=== PATIENT | female | born 1960 | race Two or more races ===

== ENCOUNTER 2019-08-09 21:28 | Emergency (ER) | payer OTHER ==
[2019-08-09 21:41] VITALS: BMI 28.9
--- NOTE | 2019-08-09 21:44 | PDOC ---
Rapid Medical Evaluation Chief Complaint: Blood Pressure Problem Time Seen by Provider: 08/09/19 21:41 Medical Evaluation: Allergies Allergy/AdvReac Type Severity Reaction Status Date / Time No Known Allergies Allergy Verified 08/09/19 21:38 Vital Signs Temp Pulse Resp BP Pulse Ox 98.1 F 88 18 142/100 100 08/09/19 21:35 08/09/19 21:35 08/09/19 21:35 08/09/19 21:35 08/09/19 21:35 08/09/19 21:42 Pt c/o: pt states elevated bp x 3 weeks with mild pressure like headache intermittently, pt states went to pcp last week and was told to change diet ( low salt) and f/u in 2 weeks. pt states headaches continues and unrelieved with tylenol Pt on brief exam: 142/100, no pedal edema, lcta, karmen Pt ordered for: labd, urine, cxr, ekg Pt to proceed to the ED Discharge Disposition - Diagnosis Elevated blood pressure reading, Headache - Discharge Dispostion Disposition: HOME Condition at time of disposition: Improved Last Admission D/C Date: 10/18/14 - Referrals Referrals: Miguel Ángel Guzman [Primary Care Provider] - - Patient Instructions Printed Discharge Instructions: DI for High Blood Pressure Additional Instructions: Follow up with your primary care doctor within 3 days. Your care is not complete until you follow up. Return to the Emergency Department for increasing pain, chest pain, shortness of breath, vomiting, fever, blood in urine, severe abdominal or back pain, lightheadedness, passing out, weakness, numbness, tingling, or any other new, worsening or concerning symptoms. ---- GOOGLE TRANSLATION PROVIDED VIA GOOGLE TRANSLATION Maile un seguimiento con mejía mdico de atencin primaria dentro de los 3 boyd. Mejía atencin no estar completa hasta que realice el seguimiento. Regrese al departamento de emergencias para aumentar el dolor, dolor en el pecho , falta de aliento, vmitos, fiebre, jose c en la orina, dolor abdominal o de espalda intenso, mareos, desmayos, debilidad, entumecimiento, hormigueo o cualquier otro sntoma nuevo, que empeora o preocupa. . Print Language: BULGARIAN - Post Discharge Activity Work/School Note: Back to Work
[2019-08-09] MEDS ORDERED: SODIUM CHLORIDE 1,000 ML IV STA (22:11)
[2019-08-09] MEDS ORDERED: METOCLOPRAMIDE HCL INJECTION 10 MG/2 ML VIAL IVPUSH ONE (22:11)
[2019-08-09] MEDS ORDERED: ACETAMINOPHEN 1000 MG/100 ML VIAL (NON FORMULARY) IVPB ONE (22:11)
--- NOTE | 2019-08-09 22:18 | PDOC ---
Attending Attestation - Resident Resident Name: Nakia Crandall - ED Attending Attestation I have performed the following: I have examined & evaluated the patient, The case was reviewed & discussed with the resident, I agree w/resident's findings & plan - HPI HPI: 08/10/19 06:59 see resident hpi - Physicial Exam PE: 08/10/19 06:59 agree with resident exam - Medical Decision Making 08/10/19 07:06 59-year-old female with bandlike headache and history of lung cancer CT brain showed no significant abnormalities Patient resolved after IV fluids, Tylenol and Reglan Patient DC'd home
[2019-08-09 22:26] LABS: BASO % 1.1 % (0-2.0); HEMATOCRIT 41.8 % (32.4-45.2); HEMOGLOBIN 13.8 GM/dL (10.7-15.3); LYMPH % 38.7 % (8-40); MCH 29.6 pg (25.7-33.7); MCHC 33.1 g/dl (32.0-36.0); MEAN CELL VOLUME 89.4 fl (80-96); MEAN PLT VOLUME 8.5 fl (7.5-11.1); MONO % 9.7 % (3.8-10.2); NEUT % 48.5 % (42.8-82.8); PLATELET COUNT 275 K/MM3 (134-434); RBC 4.67 M/mm3 (3.60-5.2); RDW 13.8 % (11.6-15.6); WHITE BLOOD COUNT 6.2 K/mm3 (4.0-10.0)
--- NOTE | 2019-08-09 22:41 | PDOC ---
History of Present Illness - General Chief Complaint: Blood Pressure Problem Stated Complaint: sent by doctor Time Seen by Provider: 08/09/19 21:41 History Source: Patient, [employer] Brusher Used Exam Limitations: Language Barrier - History of Present Illness Initial Comments: Phone hub lead ([id number]) used. 59 year old female with PMH new-onset HTN, lung CA (diagnosed 2013, s/p chemo and radiation, in remission x5 years) presented to ED for intermittent headache x3 weeks, worsening today. Pt reported she was told by her PCP x3 weeks ago she has high blood pressure, was started on a low salt diet, but reported no improvement of symptoms. She reported her headache is located to her forehead, wraps around band like, intermittent, throbbing, aggravated by force/coughing/ staring at TV, alleviated by tylenol. She denied nausea, vomiting, weakness, numbness, tingling, facial drooping, speech changes, dizziness, fever, chest pain, shortness of breath. PCP: Megan PSH: denied Past social history: denied nicotine use (present or past). Past History - Past Medical History Allergies/Adverse Reactions: Allergies Allergy/AdvReac Type Severity Reaction Status Date / Time No Known Allergies Allergy Verified 08/09/19 21:38 Home Medications: Ambulatory Orders NK [No Known Home Medication] 10/14/14 Cancer: Yes (lung) COPD: No Hypercholesterolemia: Yes - Psycho Social/Smoking Cessation Hx Smoking History: Never smoked Have you smoked in the past 12 months: No Information on smoking cessation initiated: No Hx Alcohol Use: No Drug/Substance Use Hx: No Substance Use Type: None Hx Substance Use Treatment: No Review of Systems - Review of Systems Able to Perform ROS?: Yes Comments:: ROS General: denied fever, chills, generalized weakness. HEENT: denied sore throat, rhinorrhea, ear pain. Cardiovascular: denied chest pain, palpitations, syncope, diaphoresis. Respiratory: denied shortness of breath, cough, sputum production, hemoptysis. Gastrointestinal: denied abdominal pain, nausea, vomiting, diarrhea, constipation, blood in stool. Genitourinary: denied dysuria, increased urinary frequency, hematuria, urinary incontinence, flank pain. Back: denied back pain. Musculoskeletal: denied joint pain, muscle pain, joint swelling. Neurological: admitted to headache. denied dizziness, numbness, tingling, weakness. Integumentary: denied rash, laceration, abrasion. Hematologic/Lymphatic: denied bruising or bleeding. PE Constitutional: Well-nourished, Well-developed, appearing stated age. HEENT: head is normocephalic, atraumatic. EOMI. PERRLA. Neck: supple. Full ROM. Cardiovascular: regular heart rhythm. no murmurs. no pericardial friction rub. Respiratory: clear to auscultation bilaterally. no crackles, rhonchi or wheezing. no stridor. Gastrointestinal: soft, nontender. normal bowel sounds. no rebound, guarding, masses. Extremities: peripheral pulses intact. no lower extremity edema. Neurological: alert. oriented x3. CN2-12 intact. 5/5 strength all extremities. normal ankle plantar flexion. full sensation all extremities and bilateral face. romberg negative. no ataxia. gait normal. Psych: awake, alert, oriented x3. follows commands. answers questions appropriately. *Physical Exam - Vital Signs Last Vital Signs Temp Pulse Resp BP Pulse Ox 98.1 F 88 18 142/100 100 08/09/19 21:35 08/09/19 21:35 08/09/19 21:35 08/09/19 21:35 08/09/19 21:35 ED Treatment Course - LABORATORY CBC & Chemistry Diagram: 08/09/19 22:20 08/09/19 22:20 - ADDITIONAL ORDERS Additional order review: 08/09/19 22:20 RBC 4.67 MCV 89.4 MCHC 33.1 RDW 13.8 MPV 8.5 Neutrophils % 48.5 Lymphocytes % 38.7 D Monocytes % 9.7 Eosinophils % 2.0 Basophils % 1.1 D - RADIOLOGY Radiology Studies Ordered: Category Date Time Status HEAD CT WITHOUT CONTRAST [CT] Stat CT Scan 08/09/19 22:36 Ordered Medical Decision Making - Medical Decision Making 59 year old female with above PMH presented to ED for headache x3 weeks, intermittent, worsening today. Last took Tylenol at 3PM. Initial Vital Signs Temp Pulse Resp BP Pulse Ox 98.1 F 88 18 142/100 100 08/09/19 21:35 08/09/19 21:35 08/09/19 21:35 08/09/19 21:35 08/09/19 21:35 Afebrile. No tachycardia. No tachypnea. Hypertensive. No hypoxia on room air. Labs ordered: CBC, CMP, UA Imaging ordered: CT head, CXR Medications ordered: tylenol IV, reglan 10 mg IV once, normal saline bolus 1000 cc once EKG performed at 2139: rate 82, regular rhythm, normal axis, normal intervals, no acute ST changes. 08/09/19 22:43 CBC WBC 6.2 K/mm3 (4.0-10.0) 08/09/19 22:20 RBC 4.67 M/mm3 (3.60-5.2) 08/09/19 22:20 Hgb 13.8 GM/dL (10.7-15.3) 08/09/19 22:20 Hct 41.8 % (32.4-45.2) D 08/09/19 22:20 MCV 89.4 fl (80-96) 08/09/19 22:20 MCH 29.6 pg (25.7-33.7) 08/09/19 22:20 MCHC 33.1 g/dl (32.0-36.0) 08/09/19 22:20 RDW 13.8 % (11.6-15.6) 08/09/19 22:20 Plt Count 275 K/MM3 (134-434) D 08/09/19 22:20 MPV 8.5 fl (7.5-11.1) 08/09/19 22:20 Absolute Neuts (auto) 3.0 K/mm3 (1.5-8.0) 08/09/19 22:20 Neutrophils % 48.5 % (42.8-82.8) 08/09/19 22:20 Lymphocytes % 38.7 % (8-40) D 08/09/19 22:20 Monocytes % 9.7 % (3.8-10.2) 08/09/19 22:20 Eosinophils % 2.0 % (0-4.5) 08/09/19 22:20 Basophils % 1.1 % (0-2.0) D 08/09/19 22:20 Nucleated RBC % 0 % (0-0) 08/09/19 22:20 No leukocytosis. No anemia. 08/09/19 23:37 CMP Sodium 137 mmol/L (136-145) 08/09/19 22:20 Potassium 4.0 mmol/L (3.5-5.1) 08/09/19 22:20 Chloride 102 mmol/L (98-107) 08/09/19 22:20 Carbon Dioxide 26 mmol/L (21-32) 08/09/19 22:20 Anion Gap 9 MMOL/L (8-16) 08/09/19 22:20 BUN 12.4 mg/dL (7-18) 08/09/19 22:20 Creatinine 1.1 mg/dL (0.55-1.3) 08/09/19 22:20 Est GFR (CKD-EPI)AfAm 63.64 08/09/19 22:20 Est GFR (CKD-EPI)NonAf 54.91 08/09/19 22:20 Random Glucose 133 mg/dL (74-106) H 08/09/19 22:20 Calcium 9.0 mg/dL (8.5-10.1) 08/09/19 22:20 Total Bilirubin 0.3 mg/dL (0.2-1) 08/09/19 22:20 AST 31 U/L (15-37) 08/09/19 22:20 ALT 38 U/L (13-61) 08/09/19 22:20 Alkaline Phosphatase 92 U/L (45-117) 08/09/19 22:20 Total Protein 7.7 g/dl (6.4-8.2) 08/09/19 22:20 Albumin 3.6 g/dl (3.4-5.0) 08/09/19 22:20 No electrolyte abnormalities. No ROOPA. No transaminitis. Urine Test Results Urine Color Yellow 08/09/19 23:15 Urine Appearance Clear 08/09/19 23:15 Urine pH 7.5 (5.0-8.0) D 08/09/19 23:15 Ur Specific [place] 1.008 (1.010-1.035) L 08/09/19 23:15 Urine Protein Negative (NEGATIVE) 08/09/19 23:15 Urine Glucose (UA) Negative (NEGATIVE) 08/09/19 23:15 Urine Ketones Negative (NEGATIVE) 08/09/19 23:15 Urine Blood Negative (NEGATIVE) 08/09/19 23:15 Urine Nitrite Negative (NEGATIVE) 08/09/19 23:15 Urine Bilirubin Negative (NEGATIVE) 08/09/19 23:15 Ur Leukocyte Esterase Negative (NEGATIVE) 08/09/19 23:15 Negative for UTI. Negative for proteinuria. Negative for hematuria. 08/10/19 02:00 CT head showed no acute pathology. 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 08/10/19 03:12 Pt reported improvement of headache. Requesting discharge. Pt discharged. Discharge - Discharge Information Problems reviewed: Yes Clinical Impression/Diagnosis: Elevated blood pressure reading, Headache Condition: Improved Disposition: HOME - Admission No - Follow up/Referral Referrals: Miguel Ángel Guzman [Primary Care Provider] - - Patient Discharge Instructions Patient Printed Discharge Instructions: DI for High Blood Pressure Additional Instructions: Follow up with your primary care doctor within 3 days. Your care is not complete until you follow up. Return to the Emergency Department for increasing pain, chest pain, shortness of breath, vomiting, fever, blood in urine, severe abdominal or back pain, lightheadedness, passing out, weakness, numbness, tingling, or any other new, worsening or concerning symptoms. ---- GOOGLE TRANSLATION PROVIDED VIA GOOGLE TRANSLATION Maile un seguimiento con mejía mdico de atencin primaria dentro de los 3 boyd. Mejía atencin no estar completa hasta que realice el seguimiento. Regrese al departamento de emergencias para aumentar el dolor, dolor en el pecho , falta de aliento, vmitos, fiebre, jose c en la orina, dolor abdominal o de espalda intenso, mareos, desmayos, debilidad, entumecimiento, hormigueo o cualquier otro sntoma nuevo, que empeora o preocupa. . Print Language: RWANDAN - Post Discharge Activity Work/Back to School Note: Back to Work
[2019-08-09] MEDS ORDERED: METOCLOPRAMIDE HCL INJECTION 10 MG/2 ML VIAL ONE (22:51)
[2019-08-09] MEDS ORDERED: ACETAMINOPHEN INJECTION 100 ML IVPB ONE (22:52)
[2019-08-09 23:08] LABS: ALBUMIN 3.6 g/dl (3.4-5.0); BILIRUBIN,TOTAL 0.3 mg/dL (0.2-1); BLOOD UREA NITROGEN 12.4 mg/dL (7-18); CREATININE 1.1 mg/dL (0.55-1.3); TOT PROT 7.7 g/dl (6.4-8.2)
[2019-08-09 23:24] LABS: PH,URINE 7.5 (5.0-8.0); URINE APPEARANCE CLEAR; URINE BILIRUBIN NEGATIVE (NEGATIVE); URINE COLOR YELLOW; URINE GLUCOSE (UA) NEGATIVE (NEGATIVE); URINE KETONE NEGATIVE (NEGATIVE); URINE LEUK ESTERASE NEGATIVE (NEGATIVE); URINE NITRITE NEGATIVE (NEGATIVE); URINE PROTEIN NEGATIVE (NEGATIVE); URINE UROBILINOGEN 0.2 mg/dL (0.2-1.0)
[2019-08-10 03:36] VITALS: BP 127/87; PULSE 79; TEMP 97.5
--- NOTE | 2019-08-10 12:06 | EKG ---
Test Reason : Blood Pressure : / mmHG Vent. Rate : 082 BPM Atrial Rate : 082 BPM P-R Int : 168 ms QRS Dur : 084 ms QT Int : 380 ms P-R-T Axes : 061 056 051 degrees QTc Int : 443 ms NORMAL SINUS RHYTHM POSSIBLE LEFT ATRIAL ENLARGEMENT SEPTAL INFARCT , AGE UNDETERMINED ABNORMAL ECG WHEN COMPARED WITH ECG OF 14-OCT-2014 12:03, VENT. RATE HAS DECREASED BY 43 BPM SEPTAL INFARCT IS NOW PRESENT Confirmed by MADDISON GUNTER MD ([id number]) on 08/10/2019 12:05:54 PM Referred By: Confirmed By:MADDISON GUNTER MD
== END 2019-08-10 03:38 | disposition home or self-care (01) ==
LOC: JER 21:28
PROC: 3E033NZ Introduction of Analgesics, Hypnotics, Sedatives into Peripheral Vein, Percutaneous Approach (ICD-10-PCS; principal; 2019-08-09)
PROC: 3E033GC Introduction of Other Therapeutic Substance into Peripheral Vein, Percutaneous Approach (ICD-10-PCS; 2019-08-09)
DX: Z01.31 Encounter for examination of blood pressure with abnormal findings (principal); R51 Headache; Z85.118 Personal history of other malignant neoplasm of bronchus and lung; E78.00 Pure hypercholesterolemia, unspecified
CPT/HCPCS: 36415; 70450-TC; 71045-TC-FY; 80053; 81003; 85025; 93005; 93010; 99282-25; J0131; J7030